=== PATIENT | female | born 1985 | race Caucasian/White ===

== ENCOUNTER 2017-09-11 08:35 | Inpatient (IN) | payer BC ==
[~2017-09-11] VITALS: Ht 154.9 cm; Wt 64.9 kg
[2017-09-11] MEDS ORDERED: OXYTOCIN/NORMAL SALINE 1,000 ML IV SCH ×2 (09:48→20:40)
[2017-09-11] MEDS ORDERED: LR 1,000 ML IV ONE (09:48)
[2017-09-11] MEDS ORDERED: TERBUTALINE SULFATE 1 MG/ML VIAL SUBCUT ONE (10:00)
[2017-09-11] MEDS ORDERED: AMPICILLIN SODIUM 2 GM in NS 100 ML IV ONE (10:00)
[2017-09-11] MEDS ORDERED: NALBUPHINE HCL 10 MG/ML AMP IVP PRN (10:00)
[2017-09-11] MEDS: LR 1,000 ML IV SCH ×2 (10:15→12:54)
[2017-09-11 10:25] LABS: BASOPHILS % (AUTO) 0.3 % (0.0-2.0); EOSINOPHILS # (AUTO) 0.1 K/uL (0.0-0.4); EOSINOPHILS % (AUTO) 0.6 % (0.0-4.0); HEMATOCRIT 37.5 % (36-48); HEMOGLOBIN 12.7 g/dL (12.0-16.0); LYMPHOCYTES # (AUTO) 1.6 K/uL (1.0-5.5); LYMPHOCYTES % (AUTO) 17.6 % (20.5-51.5); MEAN CORPUSCULAR HEMOGLOBIN 32 pg (27-31); MEAN CORPUSCULAR HGB CONC 34 % (32-36); MEAN CORPUSCULAR VOLUME 93 fL (79.0-98.0); MONOCYTES # (AUTO) 0.8 K/uL (0.0-1.0); NEUTROPHILS # (AUTO) 6.3 K/uL (1.8-7.7); NEUTROPHILS % (AUTO) 72.5 % (40.0-70.0); PLATELET COUNT (AUTO) 168 K/uL (130-430); RED BLOOD CELL COUNT(AUTO) 4.04 MIL/uL (4.2-6.2); RED CELL DISTRIBUTION WIDTH 14.5 % (9.0-15.0); WHITE BLOOD COUNT (AUTO) 8.8 K/uL (4.8-10.8)
[2017-09-11] MEDS ORDERED: OXYTOCIN 10 UNIT/ML VIAL ONE (10:31)
[2017-09-11] MEDS ORDERED: fentaNYL CITRATE/PF 100 MCG/2 ML AMP ONE (11:31)
[2017-09-11] MEDS ORDERED: ROPIVACAINE 0.2% 100 ML ONE (11:36)
[2017-09-11] MEDS ORDERED: LR 500 ML IV ONE (13:27)
[2017-09-11] MEDS ORDERED: FENT2mCg/mL-ROPIVA0.2%/NS EPID 150 ML EP SCH (13:30)
[2017-09-11] MEDS: AMPICILLIN SODIUM 1 GM in NS 50 ML IV SCH ×3 (16:06→20:00)
[2017-09-11] MEDS ORDERED: OXYTOCIN/NORMAL SALINE 1,000 ML IV ONE (20:40)
[2017-09-11] MEDS ORDERED: DIPH-TET-PERTUS Vaccine 0.5 ML VIAL (ADACEL) I.M. PRN (20:45)
[2017-09-11] MEDS ORDERED: ANUSOL 1 EA SUPP.RECT (PREPARATION H) RC PRN (20:45)
[2017-09-11] MEDS ORDERED: OXYCODONE/ACETAMINOPHEN 5-325 TABLET PO PRN ×2 (20:45)
[2017-09-11] MEDS ORDERED: GLYCERIN/WITCH HAZEL (TUCKS PADS) TP PRN (20:45)
[2017-09-11] MEDS ORDERED: HYDROcodone/ACETAMIN 5-325 MG TAB (NORCO/ VICODIN) PO PRN (20:45)
[2017-09-11] MEDS ORDERED: METHYLERGONOVINE MALEATE 0.2 MG TABLET PO PRN (20:45)
[2017-09-11] MEDS ORDERED: HYDROCORTISONE 0.5%, 28.35 GM TOPICAL CREAM TP PRN (20:45)
[2017-09-11] MEDS ORDERED: DERMOPLAST SPRAY TP PRN (20:45)
[2017-09-11] MEDS ORDERED: RHO(D) IMMUNE GLOBULIN/MALTOSE 1500 UNITS/1.3 ML (WINHRO) IM PRN (20:45)
[2017-09-11] MEDS ORDERED: MEASLES,MUMPS&RUBELLA VACC/PF 12500 UNIT/0.5 ML VIAL SUBQ PRN (20:45)
[2017-09-11] MEDS ORDERED: LANOLIN 7 GM OINT. TP PRN (20:45)
[2017-09-11] MEDS ORDERED: TEMAZEPAM 15 MG CAPSULE PO PRN (21:00)
[2017-09-12] MEDS: IBUPROFEN 600 MG TABLET PO SCH ×5 (00:03→17:44)
[2017-09-12 06:26] LABS: BASOPHILS % (AUTO) 0.3 % (0.0-2.0); EOSINOPHILS % (AUTO) 0.3 % (0.0-4.0); HEMATOCRIT 33.5 % (36-48); HEMOGLOBIN 11.4 g/dL (12.0-16.0); LYMPHOCYTES # (AUTO) 1.8 K/uL (1.0-5.5); LYMPHOCYTES % (AUTO) 13.4 % (20.5-51.5); MEAN CORPUSCULAR HEMOGLOBIN 31 pg (27-31); MEAN CORPUSCULAR HGB CONC 34 % (32-36); MEAN CORPUSCULAR VOLUME 92 fL (79.0-98.0); MONOCYTES # (AUTO) 1.2 K/uL (0.0-1.0); MONOCYTES % (AUTO) 8.7 % (1.7-9.3); NEUTROPHILS # (AUTO) 10.8 K/uL (1.8-7.7); NEUTROPHILS % (AUTO) 77.3 % (40.0-70.0); PLATELET COUNT (AUTO) 162 K/uL (130-430); RED BLOOD CELL COUNT(AUTO) 3.63 MIL/uL (4.2-6.2); RED CELL DISTRIBUTION WIDTH 14.7 % (9.0-15.0); WHITE BLOOD COUNT (AUTO) 13.8 K/uL (4.8-10.8)
[2017-09-12] MEDS ORDERED: ROPIVACAINE HCL/PF 5 MG/ML 0.5% 30 ML VIAL INJ ONE (08:30)
[2017-09-12] MEDS ORDERED: DOCUSATE SODIUM 100 MG CAPSULE PO ONE (12:13)
[2017-09-13] MEDS ORDERED: DOCUSATE SODIUM 100 MG CAPSULE PO ONE (05:57)
[2017-09-13] MEDS: IBUPROFEN 600 MG TABLET PO SCH (06:30)
== END 2017-09-13 10:55 | disposition home or self-care (01) | DRG 775 ==
LOC: SPU 08:35
PROVIDERS: ADMIT Specialist; ATTEND Specialist
PROC: 10E0XZZ Delivery of Products of Conception, External Approach (ICD-10-PCS; principal; 2017-09-11)
PROC: 0UQGXZZ Repair Vagina, External Approach (ICD-10-PCS; 2017-09-11)
PROC: 3E0R3BZ Introduction of Anesthetic Agent into Spinal Canal, Percutaneous Approach (ICD-10-PCS; 2017-09-11)
PROC: 00HU33Z Insertion of Infusion Device into Spinal Canal, Percutaneous Approach (ICD-10-PCS; 2017-09-11)
DX: O42.92 Full-term premature rupture of membranes, unspecified as to length of time between rupture and onset of labor (principal); O71.4 Obstetric high vaginal laceration alone; O99.824 Streptococcus B carrier state complicating childbirth; Z37.0 Single live birth; Z3A.39 39 weeks gestation of pregnancy
CPT/HCPCS: 36415; 81002-TC; 85025; 86592; 86886; 86900; 86901; J0290; J2590; J2795; J3010; J7120